=== PATIENT | male | born 1990 | race Caucasian/White ===

== ENCOUNTER 2016-05-12 13:59 | Emergency (ER) | payer MEDICAID, OTHER ==
[~2016-05-12] VITALS: Ht 170.2 cm; Wt 61.2 kg
[2016-05-12] MEDS ORDERED: ACETAMINOPHEN 500 MG TAB PO ONE ×2 (14:07→14:30)
[2016-05-12 14:15] VITALS: BP 143/69
[2016-05-12] MEDS ORDERED: methylPREDNISolone SOD SUCC 125 MG/2 ML VL IM ONE (15:15)
[2016-05-12] MEDS ORDERED: cefTRIAXone SOD 1,000 MG VL IM ONE (15:15)
[2016-05-12] MEDS ORDERED: IPRATROPIUM BROM 0.5 MG/2.5ML INH SOL NEB ONE (15:15)
[2016-05-12] MEDS ORDERED: ALBUTEROL SULF 2.5 MG/0.5ML(0.5%) NEB SOLN NEB ONE (15:15)
== END 2016-05-12 16:04 | disposition home or self-care (01) ==
LOC: ER 13:59
DX: J20.9 Acute bronchitis, unspecified (principal); J03.90 Acute tonsillitis, unspecified; N34.2 Other urethritis; F17.210 Nicotine dependence, cigarettes, uncomplicated; Z20.2 Contact with and (suspected) exposure to infections with a predominantly sexual mode of transmission
CPT/HCPCS: 71020; 94640; 96372; 99284; J0696; J2930

== ENCOUNTER 2019-01-09 12:41 | Emergency (ER) | payer MEDICAID | END 2019-01-09 13:25 | disposition left against medical advice (07) | LOC: ER 12:41 | DX: L02.415 Cutaneous abscess of right lower limb (principal); Z53.21 Procedure and treatment not carried out due to patient leaving prior to being seen by health care provider ==

== ENCOUNTER 2019-01-10 01:47 | Emergency (ER) | payer MEDICAID ==
[~2019-01-10] VITALS: Ht 170.2 cm; Wt 63.5 kg
[2019-01-10] MEDS ORDERED: SODIUM CHLORIDE 0.9% 1,000 ML IV ONE (06:44)
[2019-01-10] MEDS ORDERED: VANCOMYCIN 1GM/250ML 250 ML IV ONE (06:45)
[2019-01-10 08:38] LABS: Basophils # (auto) 0.1 uL; Basophils % (auto) 0.5 % (0.0-2.0); Eosinophils # (auto) 0.1 uL; Eosinophils % (auto) 0.9 % (0.0-7.0); Hematocrit 40.2 % (41.0-53.0); Hemoglobin 14.3 g/dL (13.5-17.5); Lymphocytes # (auto) 2.4 uL; Lymphocytes % (auto) 20.4 % (10.0-50.0); Mean Corpuscular Hemoglobin 29.7 pg (28.0-32.0); Mean Corpuscular Hgb Conc. 35.6 g/dL (32.0-36.0); Mean Corpuscular Volume 83.3 fL (80.0-100.0); Monocytes # (auto) 1.1 uL; Monocytes % (auto) 9.6 % (0.0-12.0); Neutrophils % (auto) 68.6 % (37.0-80.0); Nucleated Red Blood Cells % 0.1 %; Platelet Count (auto) 285 10^3/uL (140-450); Red Blood Cells 4.82 10^6/uL (4.5-5.90); Red Cell Distribution Width 12.8 % (11.8-14.3); White Blood Cell 11.7 10^3/uL (4.4-10.8)
[2019-01-10 09:09] LABS: Albumin 3.3 g/dL (3.4-5.0); BUN/Creatinine Ratio 14.3; Calcium 8.7 mg/dL (8.5-10.1)
[2019-01-10 09:53] LABS: Bilirubin, Total 0.6 mg/dL (0.2-1.0); Total Protein 7.7 g/dL (6.4-8.2)
[2019-01-10 10:01] LABS: Urine WBC None Seen /hpf (0 - 3)
[2019-01-10 10:29] LABS: Alcohol, Urine < 3.0 mg/dL (0-5); Barbiturate Scree,Urine NEGATIVE (NEGATIVE); Benzodiazephine Screen, Urine NEGATIVE (NEGATIVE); Cocaine Screen, Urine NEGATIVE (NEGATIVE); Opiate Scree,Urine POSITIVE (NEGATIVE); Phencyclidine Screen, Urine NEGATIVE (NEGATIVE)
[2019-01-10 10:40] LABS: Urine Bacteria NONE SEEN /hpf (None Seen); Urine Blood Negative /uL (Negative); Urine Specific Gravity 1.008 (1.001-1.035)
[2019-01-10 10:51] LABS: Amphetamine Screen, Urine POSITIVE (NEGATIVE); Cannabinoid Screen, Urine NEGATIVE (NEGATIVE)
[2019-01-10] MEDS ORDERED: HYDROcodone-ACET 5/325MG TAB PO PRN (11:30)
[2019-01-10] MEDS ORDERED: LORazepam 2MG/ML-1ML VIAL IV PRN (11:30)
[2019-01-10] MEDS ORDERED: VANCOMYCIN PER PHARMACY IV SCH (11:30)
[2019-01-10] MEDS ORDERED: MORPHINE SULF INJ 2 MG/ML SYRINGE 1ML IV PRN (11:30)
[2019-01-10] MEDS ORDERED: ACETAMINOPHEN 500 MG TAB PO PRN (11:30)
[2019-01-10 12:00] VITALS: BP 128/77
[2019-01-10] MEDS ORDERED: FOLIC ACID 1 MG, MULTIPLE VITAMIN 10 ML, MAGNESIUM SULF SDV 50% 8 MEQ, THIAMINE INJ 100... INJ SCH ×5 (12:00)
[2019-01-10] MEDS ORDERED: PIPERACILLIN-TAZOB 3.375GM 100 ML IV SCH (12:00)
[2019-01-10] MEDS ORDERED: HEPARIN SODIUM (PORCINE) 5000 UNITS/ML 1ML VIAL SC SCH (14:00)
[2019-01-10] MEDS ORDERED: VANCOMYCIN 1GM/250ML 250 ML IV SCH (18:00)
[2019-01-10] MEDS ORDERED: FAMOTIDINE 20 MG TAB PO SCH (22:00)
[2019-01-11] MEDS ORDERED: LEVOFLOXACIN 750MG 150 ML IV SCH (10:00)
== END 2019-01-10 12:23 | disposition left against medical advice (07) ==
LOC: ER 01:49
DX: L03.115 Cellulitis of right lower limb (principal); E44.1 Mild protein-calorie malnutrition; F17.210 Nicotine dependence, cigarettes, uncomplicated; F15.10 Other stimulant abuse, uncomplicated; F11.10 Opioid abuse, uncomplicated; M79.604 Pain in right leg; Z68.21 Body mass index [BMI] 21.0-21.9, adult
CPT/HCPCS: 36415; 71046; 80053; 80307; 81001; 83605; 83735; 85025; 87040; 93005; 93971; 96365; 99284; J3370; J3411; J3475

== ENCOUNTER 2019-05-29 01:50 | Emergency (ER) | payer MEDICAID ==
[~2019-05-29] VITALS: Ht 170.2 cm; Wt 65.8 kg
[2019-05-29 03:51] VITALS: BP 147/91
[2019-05-29] MEDS ORDERED: LIDOCAINE W/ EPINEPHRINE 1% 20ML VIAL ID ONE (04:00)
[2019-05-29] MEDS ORDERED: TETANUS-DIPTH-ACEL PERTUSSIS 0.5ML SYR Tdap IM ONE (04:00)
[2019-05-29] MEDS ORDERED: NEOMYCIN-BACITRACIN-POLYM UNITDOSE PKG TOP OINT TOP ONE (04:00)
== END 2019-05-29 05:15 | disposition home or self-care (01) ==
LOC: ER 01:57
DX: S02.2XXA Fracture of nasal bones, initial encounter for closed fracture (principal); S01.81XA Laceration without foreign body of other part of head, initial encounter; F17.210 Nicotine dependence, cigarettes, uncomplicated; Y04.0XXA Assault by unarmed brawl or fight, initial encounter; Y93.89 Activity, other specified; Y92.89 Other specified places as the place of occurrence of the external cause; Y99.8 Other external cause status
CPT/HCPCS: 12013; 70486; 90471; 90715

== ENCOUNTER 2019-06-24 18:09 | Emergency (ER) | payer MEDICAID ==
[~2019-06-24] VITALS: Ht 170.2 cm; Wt 65.8 kg
[2019-06-24 18:15] VITALS: BP 149/83
== END 2019-06-24 18:20 | disposition left against medical advice (07) ==
LOC: EDBD 18:09 → ER 18:13
DX: R51 Headache (principal); Z53.21 Procedure and treatment not carried out due to patient leaving prior to being seen by health care provider
CPT/HCPCS: 93005

== ENCOUNTER 2020-05-04 00:53 | Emergency (ER) | payer MEDICAID | END 2020-05-04 02:16 | disposition left against medical advice (07) | LOC: ER 00:59 | DX: Z53.21 Procedure and treatment not carried out due to patient leaving prior to being seen by health care provider ==

== ENCOUNTER 2023-12-28 04:58 | Emergency (ER) | payer MEDICAID ==
[~2023-12-28] VITALS: Ht 170.2 cm; Wt 64.5 kg
[2023-12-28] MEDS: cefTRIAXone SOD 1,000 MG VL IM ONE (06:55)
[2023-12-28] MEDS ORDERED: DOXY1CAP58 PO (06:56)
[2023-12-28 06:57] LABS: Urine Bacteria None Seen /hpf (None Seen)
[2023-12-28 07:04] VITALS: BP 121/85; PULSE 72; RESP 18; TEMP 97.5; O2SAT 99
[2023-12-28 07:19] LABS: Urine Blood 1+ /uL (Negative); Urine Clarity Turbid (Clear); Urine Color Yellow (Yellow); Urine Mucus FEW (None Seen); Urine Protein, UAD TRACE (Negative); Urine Urobilinogen 2 mg/dL (Negative); Urine WBC 371 /hpf (0 - 3)
[2023-12-30 14:06] LABS: Chlamydia Trachomatis, NAA Negative (Negative); Neisseria gonorrhoeae, NAA Positive (Negative)
== END 2023-12-28 07:06 | disposition home or self-care (01) ==
LOC: ER 04:58
DX: N34.2 Other urethritis (principal); F17.210 Nicotine dependence, cigarettes, uncomplicated; Z11.3 Encounter for screening for infections with a predominantly sexual mode of transmission
CPT/HCPCS: 81001; 87491; 87591; 96372; 99283; J0696

== ENCOUNTER 2024-08-13 21:24 | Emergency (ER) | payer MEDICAID ==
[~2024-08-13] VITALS: Ht 170.2 cm; Wt 71.6 kg
[~2024-08-13 21:24] MED LIST: DOXY1CAP58 PO
--- NOTE | 2024-08-13 21:56 | ED.PDOC ---
History of Present Illness HPI Comments 34-year-old male presents with a chief complaint of multiple abscess' to his left axiliary area. Patient mentions that he just got [facility] of [facility] and has possibly gotten cellulitis. Patient has subjective fever, but is afebrile at this time. Patient has no other stated complaints at this time. Patient was ag itated and animated at time of evaluation. Patient may be on an illicit drug. Time Seen by MD: 21:53 Primary Care Provider: NONE Reviewed Notes: Nurses Notes, Medications, Allergies Allergies: Coded Allergies: NO KNOWN ALLERGIES (Unverified , 09/15/11) Home Meds Active Scripts Doxycycline (Monohydrate) (Doxycycline) 100 Mg Cap, 100 MG PO BID, #20 CAP Prov:LEN ODELL 12/28/23 Information Source: Patient Mode of Arrival: Ambulatory Severity: Moderate Timing: Days Duration: Since onset Prehospital treatment: None Past Medical History PAST MEDICAL HISTORY: Denies Surgical History: Denies all surgeries Family History Family History: Reviewed,noncontributory to illness Social History Smoker: Cigarettes Alcohol: Occasionally Drugs: Methamphetamine Lives In: Home Constitutional: denies: chills, diaphoresis, fatigue, fever, malaise, sweats, weakness, others EENTM: denies: blurred vision, double vision, ear bleeding, ear discharge, ear drainage, ear pain, ear ringing, eye pain, eye redness, hearing loss, mouth pain, mouth swelling, nasal discharge, nose bleeding, nose congestion, nose pain, photophobia, tearing, throat pain, throat swelling, voice changes, others Respiratory: denies: cough, hemoptysis, orthopnea, SOB at rest, shortness of breath, SOB with excertion, stridor, wheezing, others Cardiovascular: denies: chest pain, dizzy spells, diaphoresis, Dyspnea on exertion, edema, irregular heart beat, left arm pain, lightheadedness, palpitations, PND, syncope, others Gastrointestinal: denies: abdomen distended, abdominal pain, blood streaked bowels, constipated, diarrhea, dysphagia, difficulty swallowing, hematemesis, melena, nausea, poor appetite, poor fluid intake, rectal bleeding, rectal pain, vomiting, others Genitourinary: denies: burning, dysuria, flank pain, frequency, hematuria, incontinence, penile discharge, penile sore, pain, testicle pain, testicle swelling, urgency, others Neurological: denies: dizziness, fainting, headache, left sided numbness, left sided weakness, numbness, paresthesia, pre-existing deficit, right sided numbness, right sided weakness, seizure, speech problems, tingling, tremors, weakness, others Musculoskeletal: denies: back pain, gout, joint pain, joint swelling, muscle pain, muscle stiffness, neck pain, others Integumetry: reports: wounds (Multiple abscesses to left axilla); denies: bruises, change in color, change in hair/nails, dryness, laceration, lesions, lumps, rash, others Allergic/Immunocompromised: denies: Difficulty Healing, Frequent Infections, Hives, Itching, others Hematologic/Lymphatic: denies: anemia, blood clots, easy bleeding, easy bruising, swollen glands, others Endocrine: denies: excessive hunger, excessive sweating, excessive thirst, excessive urination, flushing, intolerance to cold, intolerance to heat, unexplained weight gain, unexplained weight loss, others Psychiatric: denies: anxiety, bipolar disorder, depression, hopeless, panic disorder, schizophrenia, sleepless, suicidal, others All Other Systems: Reviewed and Negative Physical Exam General Appearance: Moderate Distress ([id number] distress due to pain related to his axillary abscesses), Normal HEENT: Normal ENT Inspection, Pharynx Normal, TMs Normal Neck: Full Range of Motion, Non-Tender, Normal, Normal Inspection Respiratory: Chest Non-Tender, Lungs Clear, No Accessory Muscle Use, No Respiratory Distress, Normal Breath Sounds Cardiovascular: No Edema, No JVD, No Murmur, No Gallop, Normal Peripheral Pulses, Regular Rate/Rhythm Breast Exam: Deferred Gastrointestinal: No Organomegaly, Non Tender, No Pulsatile Mass, Normal Bowel Sounds, Soft Genitalia: Deferred Pelvic: Deferred Rectal: Deferred Extremities: No calf tenderness, Normal capillary refill, Normal inspection, Normal range of motion, Non-tender, No pedal edema Musculoskeletal : Apperance: Normal Neurologic: Alert, No Motor Deficits, Normal Affect, Normal Mood, No Sensory Deficits Cerebellar Function: Normal Reflexes: Normal Skin: Dry, Wounds (Patient has multiple indurated abscesses to his left axillary region. No definitive drainage noted. Localized erythema and edema.) Lymphatic: No Adenopathy Was a procedure done? Was a procedure done?: No Differential Dx Considerations may include: Hidradenitis suppurativa, abscess, cellulitis X-Ray, Labs, Meds, VS Vital Signs Date Time Temp Pulse Resp B/P (MAP) Pulse Ox O2 Delivery O2 Flow Rate FiO2 08/13/24 22:21 98.0 117 18 142/98 (113) 99 98.0 Lab Test 08/13/24 22:14 Range/Units White Blood Count 17.4 H 4.4-10.8 10^3/uL Red Blood Count 5.47 4.5-5.90 10^6/uL Hemoglobin 15.9 13.5-17.5 g/dL Hematocrit 47.0 41.0-53.0 % Mean Corpuscular Volume 86.1 80.0-100.0 fL Mean Corpuscular Hemoglobin 29.2 28.0-32.0 pg Mean Corpuscular Hemoglobin Concent 33.9 32.0-36.0 g/dL Red Cell Distribution Width 14.1 11.8-14.3 % Platelet Count 252 140-450 10^3/uL Mean Platelet Volume 6.7 L 6.9-10.8 fL Neutrophils (%) (Auto) 80.2 H 37.0-80.0 % Lymphocytes (%) (Auto) 11.3 10.0-50.0 % Monocytes (%) (Auto) 7.9 0.0-12.0 % Eosinophils (%) (Auto) 0.4 0.0-7.0 % Basophils (%) (Auto) 0.2 0.0-2.0 % Neutrophils # (Auto) 13.9 H 1.6-8.6 10 ^3/uL Lymphocytes # (Auto) 2.0 0.4-5.4 10 ^3/uL Monocytes # (Auto) 1.4 H 0-1.3 10 ^3/uL Eosinophils # (Auto) 0.1 0-0.8 10 ^3/uL Basophils # (Auto) 0 0-0.2 10 ^3/uL Nucleated Red Blood Cells 0.1 % Sodium Level 139 136-145 mmol/L Potassium Level 3.6 3.5-5.1 mmol/L Chloride Level 105 98-107 mmol/L Carbon Dioxide Level 23 20-31 mmol/L Anion Gap 11 5-15 Blood Urea Nitrogen 10 9-23 mg/dL Creatinine 0.87 0.700-1.30 mg/dL Glomerular Filtration Rate Calc 115 >90 mL/min BUN/Creatinine Ratio 11.5 10.0-20.0 Serum Glucose 115 H 74-106 mg/dL Calcium Level 9.2 8.7-10.4 mg/dL Current Medications Medications (Trade) Dose Ordered Sig/Tessie Route Start Time Stop Time Status Last Admin Ketorolac Tromethamine (Toradol Injection) 30 mg ONCE ONCE IM 08/13/24 22:00 08/13/24 22:01 DC 08/13/24 23:15 Acetaminophen/ Hydrocodone Bitart ([place] 5/325MG Tab) 1 tab ONCE ONCE PO 08/13/24 22:00 08/13/24 22:01 DC 08/13/24 23:14 X-Ray, Labs, Meds, VS Comment All studies performed the ED were evaluated by me personally. Patient was never able to provide us with a urine. Serum laboratories revealed a leukocytosis. Patient was given a dose of Bactrim prior to discharge and has been advised to utilize medication as directed until completion as well as warm compresses. If the wounds coalesce, patient has been advised to return to ED for possible I&D. Time of 1ST Reevaluation: :21 Reevaluation 1ST: Improved Consultation: PCP Patient Education/Counseling: Diagnosis, Treatment, Need For Follow Up Family Education/Counseling: Diagnosis, Treatment, No Family Present Departure 1 Departure Time of Disposition: :22 Impression: Primary Impression: Abscess Disposition: HOME / SELF CARE / HOMELESS Condition: Stable Additional Instructions: Advised patient utilize antibiotics as directed until completion as well as warm compresses. Pain medication as needed. e-Prescriptions Acetaminophen (Acetaminophen) 500 Mg Tab 500 MG PO Q4HP PRN, #30 TAB Prov: JANAE KENNY PAC 08/14/24 Ibuprofen Micronized (Ibuprofen) 800 Mg Tab 800 MG PO Q8HP PRN, #20 TAB Prov: JANAE KENNY PAC 08/14/24 Sulfamethoxazole W/Trimethopri (Bactrim Ds Tablet) 1 Tab Tb 1 TAB PO BID for 10 Days, #20 TAB Prov: JANAE KENNY PAC 08/14/24 Discharged With: Self, Friend Critical Care Note Critical Care Time?: No Stability Stability form required: No Heart Score Heart Score: Heart Score Response (Comments) Value History N/A 0 EKG N/A 0 Age N/A 0 Risk Factors N/A 0 Troponin N/A 0 Total 0 I personally scribed for JANAE KENNY PAC ([email or web address]) on 08/13/24 at 21:56. Electronically submitted by Richard Torres ([email or web address]). JANAE KENNY PAC Aug 13, 2024 21:56
[2024-08-13 22:25] LABS: Basophils # (auto) 0 10 ^3/uL (0-0.2); Basophils % (auto) 0.2 % (0.0-2.0); Eosinophils # (auto) 0.1 10 ^3/uL (0-0.8); Eosinophils % (auto) 0.4 % (0.0-7.0); Hemoglobin 15.9 g/dL (13.5-17.5); Lymphocytes % (auto) 11.3 % (10.0-50.0); Mean Corpuscular Hemoglobin 29.2 pg (28.0-32.0); Mean Corpuscular Hgb Conc. 33.9 g/dL (32.0-36.0); Mean Corpuscular Volume 86.1 fL (80.0-100.0); Monocytes # (auto) 1.4 10 ^3/uL (0-1.3); Monocytes % (auto) 7.9 % (0.0-12.0); Neutrophils # (auto) 13.9 10 ^3/uL (1.6-8.6); Neutrophils % (auto) 80.2 % (37.0-80.0); Nucleated Red Blood Cells % 0.1 %; Platelet Count (auto) 252 10^3/uL (140-450); Red Blood Cells 5.47 10^6/uL (4.5-5.90); Red Cell Distribution Width 14.1 % (11.8-14.3); White Blood Cell 17.4 10^3/uL (4.4-10.8)
[2024-08-13 22:39] LABS: Chloride 105 mmol/L (98-107); Potassium 3.6 mmol/L (3.5-5.1); Sodium 139 mmol/L (136-145)
[2024-08-13 22:40] LABS: Anion Gap 11 (5-15); Carbon Dioxide 23 mmol/L (20-31)
[2024-08-13 22:41] LABS: Calcium 9.2 mg/dL (8.7-10.4)
[2024-08-13 22:45] LABS: BUN/Creatinine Ratio 11.5 (10.0-20.0); Blood Urea Nitrogen 10 mg/dL (9-23)
[2024-08-13 22:46] LABS: Glucose 115 mg/dL (74-106)
[2024-08-13] MEDS: HYDROcodone-ACET 5/325MG TAB PO ONE (23:14)
[2024-08-13] MEDS: KETOROLAC TROMETH 60MG/2ML VIAL IM ONE (23:15)
[2024-08-14] MEDS ORDERED: IBUP-1455 PO (01:25)
[2024-08-14] MEDS ORDERED: BACDST PO (01:25)
[2024-08-14] MEDS ORDERED: ACET500T58 PO (01:25)
[2024-08-14 01:30] VITALS: BP 129/95; PULSE 98; RESP 16; TEMP 98; O2SAT 98
[2024-08-14] MEDS: SULFAMETHOX W/TRIMETH(800/160MG) DS TAB PO ONE (01:41)
== END 2024-08-14 01:48 | disposition home or self-care (01) ==
LOC: ER 21:24
DX: L02.412 Cutaneous abscess of left axilla (principal); F17.210 Nicotine dependence, cigarettes, uncomplicated; F10.90 Alcohol use, unspecified, uncomplicated; F12.90 Cannabis use, unspecified, uncomplicated; Z79.899 Other long term (current) drug therapy; Y90.9 Presence of alcohol in blood, level not specified
CPT/HCPCS: 36415; 80048; 85025; 96372; 99283; J1885

== ENCOUNTER 2024-11-19 13:36 | Emergency (ER) | payer SELFPAY ==
[~2024-11-19] VITALS: Ht 170.2 cm; Wt 70.5 kg
[~2024-11-19 13:36] MED LIST changes: +ACET500T58 PO; +BACDST PO; +IBUP-1455 PO
--- NOTE | 2024-11-19 14:03 | ED.PDOC ---
History of Present Illness(SKN HPI Comments A 34 YEAR OLD MALE PRESENTS TO THE ED WITH COMPLAINT OF LUMP OF RIGHT AXILLA. PATIENT STATES HE HAS HAD A PAINFUL AND RED LUMP OF HIS RIGHT AXILLA FOR THE PAST 5 DAYS. PATIENT IS CONCERNED THAT HAS AN INFECTION TO THIS AREA. PATIENT DENIES FEVER, CHILLS, SHORTNESS OF BREATH, CHEST PAIN, ABDOMINAL PAIN, NAUSEA, VOMITING, HEADACHE, OR OTHER COMPLAINTS. NO OTHER SYMPTOMS OR MODIFYING FACTORS AT THIS TIME. PATIENT IS ALERT, ORIENTED X 4, AND HAS STEADY GAIT. Chief Complaint: Wound Check Time Seen by MD: 13:45 Primary Care Provider: NONE History of Present Illness: Nurses Notes, Medications, Allergies Allergies: Coded Allergies: NO KNOWN ALLERGIES (Unverified , 09/15/11) Home Meds Active Scripts Ibuprofen (Ibuprofen) 600 Mg Tab, 1 TAB PO TID, #30 TAB Prov:LEN ODELL 11/19/24 Sulfamethoxazole W/Trimethopri (Bactrim Ds Tablet) 1 Tab Tb, 1 TAB PO BID, #20 TAB Prov:LEN ODELL 11/19/24 Acetaminophen (Acetaminophen) 500 Mg Tab, 500 MG PO Q4HP PRN, #30 TAB Prov:JANAE KENNY PAC 08/14/24 Ibuprofen Micronized (Ibuprofen) 800 Mg Tab, 800 MG PO Q8HP PRN, #20 TAB Prov:JANAE KENNY PAC 08/14/24 Sulfamethoxazole W/Trimethopri (Bactrim Ds Tablet) 1 Tab Tb, 1 TAB PO BID for 10 Days, #20 TAB Prov:JANAE KENNY PAC 25 Doxycycline (Monohydrate) (Doxycycline) 100 Mg Cap, 100 MG PO BID, #20 CAP Prov:LEN ODELL 12/28/23 Information Source: Patient Mode of Arrival: Ambulatory Severity: Moderate Timing: Days Duration: Since onset, Days Prehospital treatment: None Location: Other (RIGHT AXILLA) Mechanism: Spontaneous Onset Occurence: Indoors Object: None Condition of Object: None Retained Foreign Body: No Wound Type: Other (FOLLICULITIS) Immunization Status of Animal: NA Tetanus: UTD, Unknown History of: None Associated Signs and Symptoms: Redness, Swelling, Pain Past Medical History PAST MEDICAL HISTORY: Denies Surgical History: Denies all surgeries Family History Family History: Reviewed,noncontributory to illness Social History Smoker: Cigarettes Alcohol: Occasionally Drugs: Methamphetamine Lives In: Home Constitutional: denies: chills, diaphoresis, fatigue, fever, malaise, sweats, weakness, others EENTM: denies: blurred vision, double vision, ear bleeding, ear discharge, ear drainage, ear pain, ear ringing, eye pain, eye redness, hearing loss, mouth pain, mouth swelling, nasal discharge, nose bleeding, nose congestion, nose pain, photophobia, tearing, throat pain, throat swelling, voice changes, others Respiratory: denies: cough, hemoptysis, orthopnea, SOB at rest, shortness of breath, SOB with excertion, stridor, wheezing, others Cardiovascular: denies: chest pain, dizzy spells, diaphoresis, Dyspnea on exertion, edema, irregular heart beat, left arm pain, lightheadedness, palpitations, PND, syncope, others Gastrointestinal: denies: abdomen distended, abdominal pain, blood streaked bowels, constipated, diarrhea, dysphagia, difficulty swallowing, hematemesis, melena, nausea, poor appetite, poor fluid intake, rectal bleeding, rectal pain, vomiting, others Genitourinary: denies: burning, dysuria, flank pain, frequency, hematuria, incontinence, penile discharge, penile sore, pain, testicle pain, testicle swelling, urgency, others Neurological: denies: dizziness, fainting, headache, left sided numbness, left sided weakness, numbness, paresthesia, pre-existing deficit, right sided numbness, right sided weakness, seizure, speech problems, tingling, tremors, weakness, others Musculoskeletal: denies: back pain, gout, joint pain, joint swelling, muscle pain, muscle stiffness, neck pain, others Integumetry: reports: lumps ( RIGHT AXILLA); denies: bruises, change in color, change in hair/nails, dryness, laceration, lesions, rash, wounds, others Allergic/Immunocompromised: denies: Difficulty Healing, Frequent Infections, Hives, Itching, others Hematologic/Lymphatic: denies: anemia, blood clots, easy bleeding, easy bruising, swollen glands, others Endocrine: denies: excessive hunger, excessive sweating, excessive thirst, excessive urination, flushing, intolerance to cold, intolerance to heat, unexplained weight gain, unexplained weight loss, others Psychiatric: denies: anxiety, bipolar disorder, depression, hopeless, panic disorder, schizophrenia, sleepless, suicidal, others All Other Systems: Reviewed and Negative Physical Exam General Appearance: No Apparent Distress, Normal HEENT: Normal ENT Inspection, PERRL/EOMI, Pharynx Normal, TMs Normal Neck: Full Range of Motion, Non-Tender, Normal, Normal Inspection Respiratory: Chest Non-Tender, Lungs Clear, No Accessory Muscle Use, No Respiratory Distress, Normal Breath Sounds Cardiovascular: No Edema, No JVD, No Murmur, No Gallop, Normal Peripheral Pulses, Regular Rate/Rhythm Breast Exam: Deferred Gastrointestinal: No Organomegaly, Non Tender, No Pulsatile Mass, Normal Bowel Sounds, Soft Genitalia: Deferred Pelvic: Deferred Rectal: Deferred Extremities: No calf tenderness, Normal capillary refill, Normal inspection, Normal range of motion, Non-tender, No pedal edema Musculoskeletal : Apperance: Normal Neurologic: Alert, weigh and charge worker II-XII nml as Tested, No Motor Deficits, Normal Affect, Normal Mood, No Sensory Deficits Cerebellar Function: Normal Reflexes: Normal Skin: Dry, Normal Color, Warm, Wounds ( A SMALL RED BUMP ON RIGHT AXILLARY WITH TENDERNESS, NO PUS DRAINAGE. ) Peripheral Pulses: 2+ carotid (R), 2+ carotid (L) Lymphatic: No Adenopathy Was a procedure done? Was a procedure done?: No Differential Diagnosis (INTG) Differential Diagnosis: Abrasion, Cellulitis, Contusion, Insect Envenomation, Puncture Wound, Other (FOLLICULITIS) Differential Diagnosis: N/A Differential Diagnosis: N/A Abscess: Felon, N/A Differential Diagnosis: N/A X-Ray, Labs, Meds, VS Vital Signs Date Time Temp Pulse Resp B/P (MAP) Pulse Ox O2 Delivery O2 Flow Rate FiO2 11/19/24 13:38 97.0 88 18 128/76 97 97.0 X-Ray, Labs, Meds, VS Comment EXTERNAL MEDICAL RECORDS REVIEWED: [NONE] INDEPENDENT HISTORIANS: [NONE] SOCIAL DETERMINANTS OF HEALTH: [NONE] LABS ORDERED: NONE REVIEWED AND INTERPRETED RESULTS: NONE IMAGING ORDERED: NONE TREATMENTS ORDERED: NONE PROCEDURES PERFORMED: NONE CRITICAL CARE TIME: NONE I HAVE DISCUSSED THE PATIENT WITH THE ATTENDING PHYSICIAN DR. VEGA AND HE AGREES WITH THE PATIENT'S PLAN OF CARE AND DISPOSITION. BASED ON HISTORY OF PRESENT ILLNESS, AND PHYSICAL EXAM, PATIENT WILL BE DISCHARGED HOME. DISCUSSED PLAN FOR DISCHARGE HOME WITH RX [[facility]]. MEDICATION WARNINGS GIVEN. SHARED DECISION MAKING: PATIENT INSTRUCTED TO FOLLOW UP WITH PRIMARY CARE PROVIDER IN 1-2 DAYS FOR RE-EVALUATION OF SYMPTOMS. PATIENT VERBALIZES UNDERSTANDING TO RETURN TO ED FOR NEW OR WORSENING SYMPTOMS OR IF FOLLOW UP WITH PCP CANNOT BE OBTAINED. PATIENT FEELS COMFORTABLE GOING HOME AT THIS TIME. ALL QUESTIONS ADDRESSED AT TIME OF DISCHARGE. Time of 1ST Reevaluation: 14:20 Reevaluation 1ST: Improved Patient Education/Counseling: Diagnosis, Treatment, Need For Follow Up Family Education/Counseling: Diagnosis, Treatment, Need For Follow Up Medical Screening: No EMC Exist At This Time SEPSIS Sepsis Screen Date sepsis recognized/suspect: Nov 19, 2024 Time Sepsis recognized/suspect: 1340 Recent Procedure: No On Antibiotic Therapy: No Respiratory Rate >20: No Heart Rate >90: No Temp<36 C (96.8 F) or >38.3 C: No SBP <90 or MAP <65 mmHG: No New Acute Mental Status Change: No Is the patient on CPAP, BIPAP,: No Vital Signs Date Time Temp Pulse Resp B/P (MAP) Pulse Ox O2 Delivery O2 Flow Rate FiO2 11/19/24 13:38 97.0 88 18 128/76 97 97.0 Departure 1 Departure Time of Disposition: 14:30 Impression: Primary Impression: Folliculitis of right axilla Disposition: 01 HOME / SELF CARE / HOMELESS Condition: Stable Additional Instructions: FOLLOW-UP WITH PCP IN 1 TO 2 DAYS. TAKE MEDICATIONS PRESCRIBED. RETURN TO ED FOR ANY NEW OR WORSENING SYMPTOMS. e-Prescriptions Ibuprofen (Ibuprofen) 600 Mg Tab 1 TAB PO TID, #30 TAB Prov: LEN ODELL 11/19/24 Sulfamethoxazole W/Trimethopri (Bactrim Ds Tablet) 1 Tab Tb 1 TAB PO BID, #20 TAB Prov: LEN ODELL 11/19/24 Discharged With: Self Critical Care Note Critical Care Time?: No Stability Stability form required: No I personally scribed for LEN ODELL ([email or web address]) on 11/19/24 at 14:03. Electronically submitted by Jax Lazar ([email or web address]). LEN ODELL Nov 19, 2024 14:03
[2024-11-19] MEDS ORDERED: BACDST PO (14:05)
[2024-11-19] MEDS ORDERED: IBUP-1454 PO (14:05)
[2024-11-19 14:16] VITALS: BP 136/83; PULSE 82; RESP 18; TEMP 97.6; O2SAT 96
== END 2024-11-19 14:20 | disposition home or self-care (01) ==
LOC: ER 13:39
DX: L73.8 Other specified follicular disorders (principal); F19.90 Other psychoactive substance use, unspecified, uncomplicated; F10.90 Alcohol use, unspecified, uncomplicated; F17.210 Nicotine dependence, cigarettes, uncomplicated; Z79.899 Other long term (current) drug therapy; Y90.9 Presence of alcohol in blood, level not specified